=== PATIENT | female | born 1965 | race Caucasian/White ===

== ENCOUNTER 2017-01-18 12:18 | Emergency (ER) | payer SELFPAY ==
[~2017-01-18] VITALS: Ht 152.4 cm; Wt 58.0 kg
[~2017-01-18 12:18] MED LIST: ZITH250T PO
[2017-01-18 12:20] VITALS: BP 110/65; PULSE 85; RESP 20; TEMP 99.3; O2SAT 100
--- NOTE | 2017-01-18 12:44 | PD ---
HPI . Generalized aches and pains Chief Complaint: Pain: Acute or Chronic Time Seen by Provider: 12:35 Travel History International Travel<30 days: No Contact w/Intl Traveler<30days: No Traveled to known affect area: No History of Present Illness HPI 51-year-old female here with complaints of general aches and pains/myalgias. She tells me the pain is all over. She has generalize weakness over her entire body. Patient was apparently seen at another hospital in [place] and told that she may have multiple sclerosis. Apparently there was some confusion about in multi care technician not being present and she never got an MRI of her brain done. She received two injections there. Toradol and steroid from what it seems. Initially, she is requesting MRI of the brain. I did a full head to toe examination and explained to the patient I feel she may be suffering from some type of viral illness. I explained to her that MS is in my list of differentials, however it is not my highest index of suspicion. She tells me that she was looking for a second opinion and is in agreement. We will swab her for influenza. It is possible that she has some type of viral process. I discussed treatment with antivirals and she is in agreement. She was already prescribed prednisone and ultram. She has not yet filled these prescriptions. She is accompanied by her mother in law. PFSH Past Surgical History Hysterectomy: Yes Social History Alcohol Use: No Tobacco Use: No Substance Use: No Allergies-Medications (Allergen,Severity, Reaction): Coded Allergies: Penicillin (Verified Allergy, Mild, GI UPSET, 01/18/17) Reported Meds & Prescriptions Reported Meds & Active Scripts Active Tamiflu (Oseltamivir Phosphate) 75 Mg Cap 75 Mg PO BID 5 Days Review of Systems General / Constitutional: No: Fever Eyes: No: Visual changes HENT: No: Headaches Cardiovascular: No: Chest Pain or Discomfort Respiratory: No: Shortness of Breath Gastrointestinal: No: Abdominal Pain Genitourinary: No: Urgency, Frequency, Dysuria, Hesitancy, Dribbling Musculoskeletal: Positive: Myalgias, Limited ROM, No: Pain Skin: No Rash Neurologic: No: Weakness Psychiatric: No: Depression Endocrine: No: Polydipsia Hematologic/Lymphatic: No: Easy Bruising Physical Exam Narrative GENERAL: AAO x 3, no acute distress, Well-nourished, well-developed patient. SKIN: Warm and dry. No visible rashes or bruising. HEAD: Normocephalic and atraumatic. EYES: No scleral icterus. No injection or drainage. EOM intact, PERRLA ENT: No nasal drainage noted. Mucous membranes pink. Airway patent. NECK: Supple, trachea midline. No JVD. No lymphadenopathy CARDIOVASCULAR: Regular rate and rhythm without murmurs, gallops, or rubs. RESPIRATORY: Breath sounds equal bilaterally. No accessory muscle use. No rhonchi or rales. GASTROINTESTINAL: Abdomen soft, non-tender, nondistended. Normoactive bowel sounds. EXTREMITIES: No cyanosis or edema. Limited range of motion of all extremities secondary myalgia and pain. Patient witnessed moving from wheel chair to exam table and standing in exam room. Limited movement on exam out of proportion to what I witnessed her doing. Pulses intact b/l LE. NEURO: decreased polishing pad mounter strength, decreased UE and LE strength b/l, but equal.No focal deficits. BACK: Nontender without obvious deformity. No CVA tenderness. PSYCH: AAO x 3, normal affect. Data Data Last Documented VS Vital Signs Date Time Temp Pulse Resp B/P Pulse Ox O2 Delivery O2 Flow Rate FiO2 01/18/17 12:20 99.3 85 20 110/65 100 Room Air Orders Influenzae A/B Antigen (01/18/17 12:44) Ondansetron Inj (Zofran Inj) (01/18/17 12:45) Complete Blood Count With Diff (01/18/17 13:05) Comprehensive Metabolic Panel (01/18/17 13:05) Creatine Kinase (Cpk) (01/18/17 13:05) Labs Laboratory Tests Test 01/18/17 13:24 White Blood Count 10.8 TH/MM3 Red Blood Count 4.51 MIL/MM3 Hemoglobin 13.3 GM/DL Hematocrit 39.1 % Mean Corpuscular Volume 86.6 FL Mean Corpuscular Hemoglobin 29.6 PG Mean Corpuscular Hemoglobin 34.1 % Concent Red Cell Distribution Width 13.3 % Platelet Count 252 TH/MM3 Mean Platelet Volume 8.2 FL Neutrophils (%) (Auto) 84.3 % Lymphocytes (%) (Auto) 6.6 % Monocytes (%) (Auto) 7.0 % Eosinophils (%) (Auto) 2.0 % Basophils (%) (Auto) 0.1 % Neutrophils # (Auto) 9.1 TH/MM3 Lymphocytes # (Auto) 0.7 TH/MM3 Monocytes # (Auto) 0.7 TH/MM3 Eosinophils # (Auto) 0.2 TH/MM3 Basophils # (Auto) 0.0 TH/MM3 CBC Comment DIFF FINAL Differential Comment Sodium Level 139 MEQ/L Potassium Level 4.4 MEQ/L Chloride Level 106 MEQ/L Carbon Dioxide Level 27.5 MEQ/L Anion Gap 6 MEQ/L Blood Urea Nitrogen 23 MG/DL Creatinine 1.16 MG/DL Estimat Glomerular Filtration 49 ML/MIN Rate Random Glucose 84 MG/DL Calcium Level 9.1 MG/DL Total Bilirubin 1.5 MG/DL Aspartate Amino Transf 19 U/L (AST/SGOT) Alanine Aminotransferase 26 U/L (ALT/SGPT) Alkaline Phosphatase 104 U/L Total Creatine Kinase 64 U/L Total Protein 7.4 GM/DL Albumin 3.9 GM/DL MDM Medical Decision Making Medical Screen Exam Complete: Yes Emergency Medical Condition: Yes Medical Record Reviewed: Yes Differential Diagnosis influenza, viral syndrome, polymyalgia rheumatica, polymyositis, GB, MS, Narrative Course This is a 51-year-old female presenting with generalized myalgias. She has already been seen at another hospital, however the workup there is unclear. I will go ahead and check a CBC, CMP, CK to rule out any type of acute infection , rhabdomyolysis or acute kidney injury. I have also checked influenza. Although I suspect influenza is going to be negative, there is a possibility that she may have underlying viral process. I have discussed using Tamiflu with her and she is in agreement and actually wants that medication. She can continue to use the prednisone that was provided at her previous hospital visit. 1405: slightly dehydrated; provided Gatorade in hospital/encouraged to drink Bilirubin high, but no abdominal pain or GI complaints. No WBC, elevated neutrophils, no GI, , Respiratory complaints: likely from steroid injection she received earlier I do not believe any imaging is warranted. I once again discussed treatment plan and she tells me, "I love Tamiflu, even though it's expensive." patient cleared for discharge and encouraged to stay hydrated. I recommend f/u with PCP in 2-3 days. Patient verbalized understanding of instructions, questions were answered, and thanked me for their care. I advised them if their condition worsens, please return to the nearest emergency room for further care. Diagnosis Primary Impression: Myalgia Additional Impressions: Viral syndrome Dehydration Patient Instructions: General Instructions Additional Instructions: Please return to emergency department if your symptoms return or worsen. Follow up with your primary care provider. Take medications as prescribed. As we discussed, please follow-up with her primary care provider for further workup and treatment. You can use the prednisone that was provided by the other hospital. Please see your primary care doctor in the next 2-3 days. Med/Other Pt SpecificInfo: Prescription(s) given Scripts Oseltamivir (Tamiflu)75 Mg Cap75 Mg PO BID 5 Days Ref 0 Prov:Jef Gordon MD 01/18/17 Disposition: 01 DISCHARGE HOME Condition: Stable Nayely Ovalle January 18, 2017 12:44
[2017-01-18] MEDS ORDERED: ONDANSETRON HCL 4 MG/2 ML VIAL IM ONE (12:45)
[2017-01-18 13:38] LABS: AUTOMATED NEUTROPHIL # 9.1 TH/MM3 (1.8-7.7); BASOPHIL % 0.1 % (0.0-2.0); EOSINOPHIL # 0.2 TH/MM3 (0-0.4); HEMATOCRIT 39.1 % (35.0-46.0); HEMO FLAGS DIFF FINAL; LYMPH % 6.6 % (9.0-44.0); LYMPHOCYTE # 0.7 TH/MM3 (1.0-4.8); MEAN CELL VOLUME 86.6 FL (80.0-100.0); MEAN CORPUSCULAR HEMOGLOBIN 29.6 PG (27.0-34.0); MEAN CORPUSCULAR HGB CONC 34.1 % (32.0-36.0); NEUT % 84.3 % (16.0-70.0); PLATELET COUNT 252 TH/MM3 (150-450); RED BLOOD COUNT 4.51 MIL/MM3 (4.00-5.30); RED CELL DISTRIBUTION WIDTH 13.3 % (11.6-17.2); WHITE BLOOD COUNT 10.8 TH/MM3 (4.0-11.0)
[2017-01-18] MEDS ORDERED: OSEL75 PO (13:40)
[2017-01-18 14:00] LABS: ANION GAP 6 MEQ/L (5-15); AST (GOT) 19 U/L (15-37); BICARBONATE 27.5 MEQ/L (21.0-32.0); BLOOD UREA NITROGEN 23 MG/DL (7-18); CHLORIDE 106 MEQ/L (98-107); GLOMERULAR FILTRATION RATE 49 ML/MIN (>89); POTASSIUM 4.4 MEQ/L (3.5-5.1); SODIUM (NA) 139 MEQ/L (136-145)
[2017-01-18 14:03] LABS: ALKALINE PHOSPHATASE 104 U/L (45-117); ALT (GPT) 26 U/L (10-53); TOTAL BILIRUBIN ADULT 1.5 MG/DL (0.2-1.0)
[2017-01-18 14:04] LABS: CREATINE KINASE 64 U/L (26-192)
== END 2017-01-18 14:11 | disposition home or self-care (01) ==
LOC: NEPK 12:18
DX: M79.1 Myalgia (principal); B34.9 Viral infection, unspecified; E86.0 Dehydration
CPT/HCPCS: 80053; 82550; 85025; 87804; 96372; 99284; J2405